=== PATIENT | male | born 1975 | race Caucasian/White ===

== ENCOUNTER → 2016-03-24 | Outpatient (CLI) | payer OTHER ==
[~2016-03-24] MED LIST: DIAZ-165 PO; LEVO-371 PO; LRT5 PO
== END | disposition home or self-care (01) ==
LOC: C.PATHSPEC 13:24
PROVIDERS: ATTEND Dermatology
DX: L73.0 Acne keloid (principal)

== ENCOUNTER → 2016-04-22 | Outpatient (CLI) | payer OTHER ==
--- NOTE | 2016-04-22 10:18 | DIAGNOSTIC IMAGING REPORT ---
Neck ULTRASOUND HISTORY: CERVICAL LYMPHADENOPATHY COMPARISON: FINDINGS: Multiple bilateral cervical lymph nodes which demonstrate normal fatty lin but mildly thickened cortices. Dominant lymph node at the right neck measures 2.7 x 1.1 x 0.9 cm. Dominant lymph node at the left neck measures 2.8 x 0.9 x 1.3 cm. The patient's bilateral palpable abnormality correspond to 1 cm lymph nodes. IMPRESSION: Borderline bilateral cervical lymphadenopathy. The patient's palpable abnormalities correspond to 1 cm lymph nodes. These lymph nodes demonstrate borderline thickened cortices. One month ultrasound follow-up or fine needle aspiration can be performed for further evaluation. Electronically signed by: Jose Valdes M.D. 04/22/2016 10:16 AM Dictated Date/Time: 04/22/2016 10:14 AM
== END | disposition home or self-care (01) ==
LOC: C.ULTRBC 09:41
PROVIDERS: ATTEND Nurse Practitioner Adult Health
DX: R59.0 Localized enlarged lymph nodes (principal)

== ENCOUNTER → 2016-05-23 | Outpatient (CLI) | payer OTHER ==
--- NOTE | 2016-05-23 10:49 | DIAGNOSTIC IMAGING REPORT ---
NECK ULTRASOUND CLINICAL HISTORY: Cervical lymphadenopathy. COMPARISON STUDY: Neck ultrasound April 22, 2016. TECHNIQUE: Sonography of the left neck at site of palpable abnormality was performed. FINDINGS: Multiple bilateral cervical lymph nodes are similar to exam of April 22, 2016. The largest left-sided node measures 2.5 x 0.9 x 1.4 cm. This is similar to exam of April 22, 2016. This node contains a fatty hilum but the cortex is slightly thickened. A right-sided cervical cervical lymph node measures 1.6 x 0.8 x 1 cm. This is also unchanged and prior exam. A few additional nodes are also unchanged. IMPRESSION: No change in borderline cervical lymphadenopathy since exam of April 22, 2016. A benign etiology is favored but the cortex of the nodes is slightly thickened. Ultrasound-guided fine needle aspiration of the dominant 2.5 x 0.9 x 1.4 cm left-sided cervical lymph node is recommended. Electronically signed by: Elmer Melo M.D. 05/23/2016 10:48 AM Dictated Date/Time: 05/23/2016 10:35 AM
== END | disposition home or self-care (01) ==
LOC: C.ULTR 09:53
PROVIDERS: ATTEND Nurse Practitioner Adult Health
DX: R59.0 Localized enlarged lymph nodes (principal)

== ENCOUNTER → 2016-06-01 | Outpatient (CLI) | payer OTHER ==
[~2016-06-01] MED LIST changes: -LEVO-371 PO; +LEVO5TAB2 PO
--- NOTE | 2016-06-01 12:31 | DIAGNOSTIC IMAGING REPORT ---
Ultrasound-guided fine-needle aspiration GUIDANCE NEEDLE PLACEMENT CLINICAL HISTORY: CERVICAL LYMPHADENOPATHY TECHNIQUE: Ultrasound-guided fine-needle aspiration COMPARISON STUDY: 05/23/2016 FINDINGS: Following informed consent and description of procedure, a total of 4 passes with a 25-gauge new or may to the dominant nodule of the left cervical region. Following 4 passes, pathology could not confirm adequate cellularity for a diagnostic exam. It is was elected to terminate the procedure at this time IMPRESSION: 4 passes with 25-gauge needle to the dominant nodule left thyroid. No complications. Pathology is pending. Electronically signed by: Gustavo Parker M.D. 06/01/2016 12:29 PM Dictated Date/Time: 06/01/2016 12:28 PM
== END | disposition home or self-care (01) ==
LOC: C.ULTR 10:40
PROVIDERS: ATTEND Nurse Practitioner Adult Health
DX: R59.0 Localized enlarged lymph nodes (principal)

== ENCOUNTER 2016-08-17 21:34 | Emergency (ER) | payer OTHER ==
[~2016-08-17] VITALS: Ht 175.3 cm; Wt 85.6 kg
[~2016-08-17 21:34] MED LIST changes: -LEVO5TAB2 PO
[2016-08-17 21:54] VITALS: TEMP 36.6; Ht 175.3 cm; Wt 85.6 kg
[2016-08-17] MEDS ORDERED: LEVO5TAB2 PO (22:07)
[2016-08-17] MEDS ORDERED: PROPARACAINE HCL 0.5% OP SOLN 15 ML BTL OP STA (22:25)
[2016-08-17] MEDS ORDERED: CIPROFLOXACIN HCL 0.3% OP SOLN 2.5 ML BTL OP STA (23:15)
--- NOTE | 2016-08-17 23:17 | EMERGENCY ROOM VISIT NOTE ---
History First contact with patient: 21:58 Chief Complaint: EYE ASSESSMENT Stated Complaint: SAWDUST IN RT EYE History of Present Illness The patient is a 40 year old male who presents to the Emergency Room via private vehicle with complaints of "sawdust in right eye". The patient states that earlier this evening, approximately 1 hour prior to arrival while at home he was operating a table saw, and was cutting laminate joselo. He states that he felt sawdust into his right eye. He was wearing glasses at that time. His tetanus is up-to-date. He tried flushing his right eye with water without relief. He denies any eye pain or vision changes. Review of Systems A complete 6-point Review of Systems was discussed with the patient, with pertinent positives and negatives listed in the History of Present Illness. All remaining Review of Systems questions can be considered negative unless otherwise specified. Past Medical/Surgical History No pertinent past medical history. Family History No pertinent. Social History Smoking Status: Never Smoker Social History: Patient lives locally with family. Current/Historical Medications Scheduled Levocetirizine Dihydrochloride (Xyzal), 5 MG PO DAILY Allergies Coded Allergies: No Known Allergies (Unverified , NONE, 08/17/16) Physical Exam Vital Signs Date Time Temp Pulse Resp B/P (MAP) Pulse Ox O2 Delivery O2 Flow Rate FiO2 08/17/16 23:28 97 18 148/97 98 08/17/16 21:54 36.6 74 16 143/89 100 Room Air Right Eye Acuity: 20/20 Left Eye Acuity: 20/20 Physical Exam VITAL SIGNS - Vital signs and nursing notes were reviewed. Stable. GENERAL -40-year-old male appearing his stated age. Communicates well with provider and answers questions appropriately. HEAD - Normocephalic, Atraumatic. No Neri's Sign or Raccoon's Eyes. No depressed skull fractures palpable. EYES - PERRL with EOMI bilaterally. Sclera of the right eye without noticeable foreign body or excoriations. Bulbar conjunctival injection noted in the right eye. Without subconjunctival hemorrhage. Palpebral conjunctiva pink and moist with no injection or discharge noted. Brief fundoscopic exam demonstrates no AV- nicking, cotton wool spots, or flame hemorrhages. Slit lamp examination performed as further described. EARS - No deformities of external structures noted on gross examination bilaterally. Handle of malleus, umbo, cone of light, pars tensa/flaccid all easily visualized. NOSE - Midline and without cyanosis. Without discharge. MOUTH/OROPHARYNX - Without perioral cyanosis. Tongue midline with equal elevation of palate bilaterally. No tonsillar hypertrophy, erythema, or exudates noted. fair dentition noted. NECK - FROM assessed. No cervical lymphadenopathy noted. Slit Lamp Examination was performed of the right eye(s). Alcaine drops were applied to the affected eye(s) for proper anesthetization. The affected eye(s) were stained with Fluorescein stain to precipitate adequate visualization of any conjunctival/scleral excoriations or ulcers. The patient's face was comfortably rested on the chin guard of the slit lamp apparatus. The lights were dimmed and the affected eye(s) were thoroughly examined under microscopy using the blue light. No uptake was present within the right eye. Additionally , the eye(s) were examined under microscopy using the regular light. Close examination revealed no abnormality. Patient tolerated the procedure well and no complications were met. Medical Decision & Procedures Medications Administered Medications (Trade) Dose Ordered Sig/Gaby Route Start Time Stop Time Status Last Admin Dose Admin Proparacaine HCl (Alcaine 0.5% Oph Soln) 2 drops NOW STAT OP 08/17/16 22:25 08/17/16 22:26 DC 08/17/16 22:34 2 DROPS Ciprofloxacin HCl (Ciprofloxacin 0.3% Op Soln) 2 drops NOW STAT OP 08/17/16 23:15 08/17/16 23:16 DC 08/17/16 23:27 2 DROPS Medical Decision patient was seen and evaluated as above. He presents to us today with right eye irritation secondary to what was believed to be sawdust foreign body. He did irrigate the right eye. Inspection reveals no retained foreign body. There appears to be nothing remaining underneath the eyelids. Slit lamp exam was unremarkable. Visual acuity is unremarkable. There is no pain. Alcaine drops did help alleviate some of discomfort. Negative Berta sign. I believe the patient is likely experiencing right eye irritation secondary to the sawdust but not from abrasion. He'll be placed upon Ciloxan eyedrops from a prophylaxis of infection and is to follow-up with ophthalmology which number was provided. He is to return here if worsening. He was educated upon worrisome symptoms which to return, had questions or discharge, and was discharged home in good condition. In the evaluation and treatment of this patient, the following differential diagnoses were considered: Corneal Abrasion, Conjunctivitis, Eye Contusion, Globe Injury, Orbital Floor Injury (Blowout Fracture), Corneal Ulcer, Keratitis , Herpes Zoster Opthalmic, Blepharitis, Orbital Cellulitis, Iritis, Scleritis/ Episcleritis, Uveitis, Temporal Arteritis, Subconjunctival Hemorrhage. Impression Primary Impression: Corneal irritation of right eye Departure Information Dispostion Home / Self-Care Condition CONVENIENCE OF CORRECTIVE THERAPY AIDE Referrals Marilee Kimball CRNP (PCP) Tavo Harris D.O. Patient Instructions [facility] Additional Instructions You have been treated in the Emergency Department today for your Corneal irritation You have been prescribed Ciloxan eye drops. Instill 1 to 2 drops into the conjunctival sac every 2 hours while awake for 2 days and 1 to 2 drops every 4 hours while awake for the next 5 days For pain control, you can use the following uqao-xju-aywyirs medicines (if >12 yo): - Regular strength (325mg/tab) Tylenol (acetaminophen) 2 tabs every 4-6 hours as needed. Do not exceed 12 tablets in a 24 hour period. Avoid taking more than 3 grams (3000 mg) of Tylenol per day. This includes any other sources of acetaminophen you may take on a regular basis. - Regular strength (200 mg/tab) Advil (ibuprofen) 1-2 tabs every 4-6 hours as needed. Do not exceed a dose of 3200 mg per day. You should relax in a quiet, dark place for the rest of the day. You should wear sunglasses while outside for the next few days until your eyes are not as sensitive to the light. You should schedule a follow-up appointment in 2-3 days with your Primary Care Provider or established Eye Doctor ([employer]) for further evaluation and treatment of your Corneal Abrasion. OR CALL DR. HARRIS Return to the Emergency Department if your current symptoms worsen despite treatment course outlined above, or if you develop any of the following symptoms : intractable pain, visual disturbances, loss of vision, increased redness, swelling, drainage, or if you develop a fever. Please return to the emergency department with any new/concerning symptoms.
[2016-08-17 23:28] VITALS: BP 148/97; PULSE 97; O2SAT 98
== END 2016-08-17 23:27 | disposition home or self-care (01) ==
LOC: C.EDB 21:35 → C.EDD 23:27
DX: T15.01XA Foreign body in cornea, right eye, initial encounter (principal); X58.XXXA Exposure to other specified factors, initial encounter; Y93.89 Activity, other specified; Y92.009 Unspecified place in unspecified non-institutional (private) residence as the place of occurrence of the external cause; Z79.899 Other long term (current) drug therapy

== ENCOUNTER → 2016-09-08 | Outpatient (CLI) | payer OTHER ==
[~2016-09-08] MED LIST changes: -DIAZ-165 PO; +LEVO-371 PO; -LRT5 PO; +OPTIRAY 320 IV PRN
--- NOTE | 2016-09-08 09:27 | DIAGNOSTIC IMAGING REPORT ---
CT SOFT TISSUE NECK WITH CT DOSE: 476.97 mGy.cm CLINICAL HISTORY: R59.0 cervical lymphadenopathy TECHNIQUE: Helical images were acquired during intravenous administration of 93 cc of Optiray 320. COMPARISON STUDY: Ultrasound examination dated 05/23/2016 FINDINGS: The visualized portions of the lung apices are unremarkable. No thyroid masses are visualized. No salivary gland masses are visualized. Multiple small cervical lymph nodes are visualized. There is a posterior cervical lymph node on the left measuring 9 x 7 mm. There is a 9 mm short axis left jugulodigastric lymph node. There is no pathologic adenopathy by size criteria. No necrotic lymph nodes are visualized. There are no fluid collections suspicious for abscess. There is no evidence of airway compromise. No mucosal space masses are visualized. IMPRESSION: Mildly prominent bilateral cervical lymph nodes. These remain at the upper limits of normal in size. No necrotic nodes are visualized. Electronically signed by: Stanislaw Cross M.D. 09/08/2016 9:25 AM Dictated Date/Time: 09/08/2016 9:19 AM
== END | disposition home or self-care (01) ==
LOC: C.CTS 08:56
DX: R59.0 Localized enlarged lymph nodes (principal)

== ENCOUNTER → 2017-05-05 | Outpatient (CLI) | payer OTHER ==
[~2017-05-05] MED LIST changes: -LEVO-371 PO; +LEVO5TAB2 PO; -OPTIRAY 320 IV PRN
[2017-05-05 09:51] LABS: BLOOD UREA NITROGEN 15 mg/dl (7-18); CALCIUM 8.7 mg/dl (8.5-10.1); CARBON DIOXIDE 28 mmol/L (21-32); CREATININE 1.23 mg/dl (0.60-1.40); GLUCOSE 91 mg/dl (70-99); SODIUM 137 mmol/L (136-145)
[2017-05-05 10:01] LABS: CHOLESTEROL 159 mg/dl (0-200); LDL CHOLESTEROL CALCULATED 101 mg/dl
== END | disposition home or self-care (01) ==
LOC: C.LABBC 08:01
PROVIDERS: ATTEND Nurse Practitioner Adult Health
DX: Z13.220 Encounter for screening for lipoid disorders (principal); Z82.49 Family history of ischemic heart disease and other diseases of the circulatory system; R19.00 Intra-abdominal and pelvic swelling, mass and lump, unspecified site; Z13.1 Encounter for screening for diabetes mellitus; R63.5 Abnormal weight gain